=== PATIENT | female | born 1975 | race Caucasian/White ===

== ENCOUNTER 2024-04-18 12:34 | Emergency (ER) | payer MEDICAID ==
[~2024-04-18] VITALS: Ht 157.5 cm; Wt 41.7 kg
[2024-04-18 12:51] VITALS: BP_SYST 126; PULSE 73; RESP 16; TEMP 97.7; O2SAT 97
[2024-04-18 13:35] LABS: BILIRUBIN,URINE NEGATIVE (NEGATIVE); BLOOD, URINE TRACE (NEGATIVE); CLARITY/URINE CLEAR (CLEAR); COLOR,URINE YELLOW (YELLOW); GLUCOSE,URINE NEGATIVE (NEGATIVE); KETONES,URINE NEGATIVE (NEGATIVE); LEUKOCYTE ESTERASE ,URINE NEGATIVE (NEGATIVE); NITRITE, URINE NEGATIVE (NEGATIVE); PROTEIN URINE NEGATIVE (NEGATIVE); UROBILINOGEN,URINE 0.2 (0.2-1.0)
[2024-04-18] MEDS: KETOROLAC TROMETHAMINE 60 MG/2 ML VIAL IM ONE (13:43)
[2024-04-18] MEDS: HYDROcodone/ACETAMIN 10-325 MG TAB PO ONE (13:45)
[2024-04-18 14:06] LABS: WBC,URINE 0-3 /HPF (0-3)
[2024-04-18 14:07] LABS: BACTERIA,URINE FEW /HPF (None Seen)
[2024-04-18] MEDS ORDERED: IBUP-1969 PO (14:11)
[2024-04-18] MEDS ORDERED: HYDR-3917 PO (14:11)
[2024-04-18 14:19] VITALS: BP_SYST 137; PULSE 73; RESP 16; TEMP 97.7; O2SAT 97
== END 2024-04-18 15:56 | disposition home or self-care (01) ==
LOC: SED 12:34
DX: S33.5XXA Sprain of ligaments of lumbar spine, initial encounter (principal); M25.552 Pain in left hip; M25.551 Pain in right hip; Z79.899 Other long term (current) drug therapy; X58.XXXA Exposure to other specified factors, initial encounter; Y93.E9 Activity, other interior property and clothing maintenance; Y92.89 Other specified places as the place of occurrence of the external cause; Y99.8 Other external cause status
CPT/HCPCS: 99284; 81001; 72100; 81025; 96372; J1885; 81000; 81015